=== PATIENT | female | born 1955 | race African-American/Black ===

== ENCOUNTER 2017-04-04 17:37 | Emergency (ER) | payer MEDICARE ==
[2017-04-04] MEDS ORDERED: ONDANSETRON 4 MG TAB.RAPDIS PO ONE (18:14)
[2017-04-04] MEDS ORDERED: NORMAL SALINE 1000 ML 1,000 ML IV ONE (18:16)
--- NOTE | 2017-04-04 18:18 | ER Document Report ---
ED Medical Screen (RME) - General Chief Complaint: Nausea/Vomiting Stated Complaint: NAUSEA,VOMITING Time Seen by Provider: 04/04/17 18:14 Mode of Arrival: Wheelchair Information source: Patient Notes: 51-year-old female presents with probable food poisoning Patient admits to vomiting has a history of diabetes single-vessel coronary artery disease I have greeted and performed a rapid initial assessment of this patient. A comprehensive ED assessment and evaluation of the patient, analysis of test results and completion of the medical decision making process will be conducted by additional ED providers. PHYSICAL EXAMINATION: GENERAL: Well-appearing, well-nourished and in no acute distress. HEAD: Atraumatic, normocephalic. EYES: Pupils equal round extraocular movements intact, conjunctiva are normal. ENT: Nares patent NECK: Normal range of motion LUNGS: No respiratory distress Musculoskeletal: Normal range of motion NEUROLOGICAL: Normal speech, normal gait. PSYCH: Normal mood, normal affect. SKIN: Warm, Dry, normal turgor, no rashes or lesions noted. TRAVEL OUTSIDE OF THE [place] IN LAST 30 DAYS: No - Related Data Allergies/Adverse Reactions: oxycodone Allergy (Verified 04/04/17 17:38) Past Medical History - Social History Chew tobacco use (# tins/day): No Frequency of alcohol use: None Drug Abuse: None - Past Medical History Cardiac Medical History: Reports: Hx Hypercholesterolemia, Hx Hypertension Endocrine Medical History: Reports: Hx Diabetes Mellitus Type 2 Renal/ Medical History: Denies: Hx Peritoneal Dialysis Past Surgical History: Reports: Hx Hysterectomy, Hx Open Heart Surgery - cabgx1 Physical Exam - Vital signs Vitals: Temp Pulse Resp BP Pulse Ox 98.3 F 93 16 108/59 L 95 04/04/17 17:44 04/04/17 17:44 04/04/17 17:44 04/04/17 17:44 04/04/17 17:44 Course - Vital Signs Vital signs: Temp Pulse Resp BP Pulse Ox 98.3 F 93 16 108/59 L 95 04/04/17 17:44 04/04/17 17:44 04/04/17 17:44 04/04/17 17:44 04/04/17 17:44
[2017-04-04 18:48] LABS: ABSOLUTE BASOPHILS # (AUTO) 0.1 10^3/uL (0.0-0.2); ABSOLUTE EOSINOPHILS # (AUTO) 0.2 10^3/uL (0.0-0.6); ABSOLUTE LYMPHOCYTES (AUTO) 3.4 10^3/uL (0.5-4.7); ABSOLUTE MONOCYTES (AUTO) 0.6 10^3/uL (0.1-1.4); ABSOLUTE NEUT (AUTO) 7.9 10^3/uL (1.7-8.2); EOSINOPHILS % (AUTO) 1.3 % (0-6); HEMATOCRIT 43.1 % (36.0-47.0); HEMOGLOBIN 14.2 g/dL (12.0-15.5); MEAN CORPUSCULAR HGB CONC 32.9 g/dL (32.0-36.0); MEAN CORPUSCULAR VOLUME 88 fl (80-97); MONOCYTES % (AUTO) 4.9 % (3-13); PLATELET COUNT 324 10^3/uL (150-450); RED BLOOD COUNT 4.88 10^6/uL (3.72-5.28); SEGMENTED NEUTROPHILS % (AUTO) 64.8 % (42-78); TOTAL CELLS COUNTED % (AUTO) 100 %; WHITE BLOOD COUNT 12.2 10^3/uL (4.0-10.5)
[2017-04-04] MEDS ORDERED: ONDANSETRON HCL INJ/PF 4 MG/2 ML SDV IV ONE (18:51)
[2017-04-04 19:04] LABS: ALANINE AMINOTRANSFERASE 35 U/L (9-52); ALBUMIN 4.3 g/dL (3.5-5.0); ALKALINE PHOSPHATASE 208 U/L (38-126); ANION GAP 11 (5-19); ASPARTATE AMINO TRANSFERASE 24 U/L (14-36); BILIRUBIN,DIRECT 0.2 mg/dL (0.0-0.4); BILIRUBIN,TOTAL 0.6 mg/dL (0.2-1.3); BLOOD UREA NITROGEN 18 mg/dL (7-20); CALCIUM 9.8 mg/dL (8.4-10.2); CARBON DIOXIDE 27 mmol/L (22-30); CHLORIDE 107 mmol/L (98-107); GLUCOSE 233 mg/dL (75-110); LIPASE 158.7 U/L (23-300); POTASSIUM 4.4 mmol/L (3.6-5.0); SODIUM 145.4 mmol/L (137-145); TOTAL PROTEIN 8.1 g/dL (6.3-8.2)
[2017-04-04] MEDS ORDERED: ONDANSETRON ODT 4 MG TAB (6 TAB/ER DISP) PO PRN (19:33)
--- NOTE | 2017-04-04 19:33 | ER Document Report ---
ED General - General Chief Complaint: Nausea/Vomiting Stated Complaint: NAUSEA,VOMITING Time Seen by Provider: 04/04/17 18:14 Mode of Arrival: Wheelchair Notes: Patient is a 61-year-old female with a past medical history of insulin- dependent diabetes, obesity and hypertension who presents with vomiting and diarrhea shortly after eating seafood with family. Patient states that symptoms started approximately 10 minutes after eating shrimp. She states that she had persistent vomiting and diarrhea which is now resolved without intervention. She states several family was complained of some cramping but nobody had vomiting and diarrhea like she did. She denies a history of similar symptoms in the past. Nothing improves or worsens her symptoms. She has not seen her primary doctor regarding today's concerns. She denies any localizing abdominal pain. TRAVEL OUTSIDE OF THE [place] IN LAST 30 DAYS: No - Related Data Allergies/Adverse Reactions: oxycodone Allergy (Verified 04/04/17 17:38) Past Medical History - General Information source: Patient - Social History Smoking Status: Former Smoker Chew tobacco use (# tins/day): No Frequency of alcohol use: None Drug Abuse: None Lives with: Family Family History: Reviewed & Not Pertinent Patient has suicidal ideation: No Patient has homicidal ideation: No - Past Medical History Cardiac Medical History: Reports: Hx Hypercholesterolemia, Hx Hypertension Endocrine Medical History: Reports: Hx Diabetes Mellitus Type 2 Renal/ Medical History: Denies: Hx Peritoneal Dialysis Past Surgical History: Reports: Hx Hysterectomy, Hx Open Heart Surgery - cabgx1 Review of Systems - Review of Systems Notes: Constitutional: Negative for fever. HENT: Negative for sore throat. Eyes: Negative for visual changes. Cardiovascular: Negative for chest pain. Respiratory: Negative for shortness of breath. Gastrointestinal: Negative for abdominal pain, positive for vomiting and diarrhea Genitourinary: Negative for dysuria. Musculoskeletal: Negative for back pain. Skin: Negative for rash. Neurological: Negative for headaches, weakness or numbness. 10 point ROS negative except as marked above and in HPI. Physical Exam - Vital signs Vitals: Temp Pulse Resp BP Pulse Ox 98.3 F 93 16 108/59 L 95 04/04/17 17:44 04/04/17 17:44 04/04/17 17:44 04/04/17 17:44 04/04/17 17:44 Interpretation: Normal Notes: PHYSICAL EXAMINATION: GENERAL: Well-appearing, well-nourished and in no acute distress. HEAD: Atraumatic, normocephalic. EYES: Pupils equal round and reactive to light, extraocular movements intact, sclera anicteric, conjunctiva are normal. ENT: nares patent, oropharynx clear without exudates. Moist mucous membranes. NECK: Normal range of motion, supple without lymphadenopathy LUNGS: Breath sounds clear to auscultation bilaterally and equal. No wheezes rales or rhonchi. HEART: Regular rate and rhythm without murmurs ABDOMEN: Soft, nontender, normoactive bowel sounds. No guarding, no rebound. No masses appreciated. EXTREMITIES: Normal range of motion, no pitting or edema. No cyanosis. NEUROLOGICAL: No focal neurological deficits. Moves all extremities spontaneously and on command. PSYCH: Normal mood, normal affect. SKIN: Warm, Dry, normal turgor, no rashes or lesions noted. Course - Re-evaluation Re-evalutation: 04/04/17 19:30 Presentation of an overall well-appearing patient in no acute distress with complaints of nausea, vomiting, diarrhea. Patient started with symptoms within 10 minutes of eating seafood. Several family members felt sick but did not develop vomiting. Patient has no abdominal tenderness on exam and specifically no tenderness in the RLQ, LLQ, RUQ. Overall well hydrated on exam. Able to tolerate oral intake here in the emergency department. Low clinical suspicion for any acute life-threatening etiology based on exam and history including acute cholecystitis, SBO, appendicitis, nephrolithiasis, or pylonephritis. CMP without evidence of acute hepatitis or significant dehydration. At this time will discharge with return precautions and follow-up recommendations. Verbal discharge instructions given a the bedside and opportunity for questions given. Medication warnings reviewed. Patient is in agreement with this plan and has verbalized understanding of return precautions and the need for primary care follow-up in the next 24-72 hours. - Vital Signs Vital signs: Temp Pulse Resp BP Pulse Ox 98.8 F 65 18 153/93 H 97 04/04/17 20:12 04/04/17 20:12 04/04/17 20:12 04/04/17 20:12 04/04/17 20:12 - Laboratory Result Diagrams: 04/04/17 18:28 04/04/17 18:28 Laboratory results interpreted by me: 04/04/17 04/04/17 18:28 18:28 WBC 12.2 H Sodium 145.4 H Glucose 233 H Alkaline Phosphatase 208 H Discharge - Discharge Clinical Impression: Nausea vomiting and diarrhea Condition: Good Disposition: HOME, SELF-CARE Additional Instructions: Your symptoms are likely due to food contamination and should resolve in the next several days. Continue to stay hydrated with plenty of solution such as Gatorade or Pedialyte. You are being prescribed Zofran to take as needed for nausea and vomiting. Please return if you develop severe abdominal pain, pass out, become unable to tolerate any oral fluids for 12 more hours, or any other symptoms that are concerning to you.
[2017-04-04 20:17] VITALS: BP 153/93
--- NOTE | 2017-04-05 11:55 | EKG REPORT ---
SEVERITY:- ABNORMAL ECG - SINUS RHYTHM LVH WITH SECONDARY REPOLARIZATION ABNORMALITY : Confirmed by: Bailey Liang MD 05-Apr-2017 11:55:19
== END 2017-04-04 20:18 | disposition home or self-care (01) ==
LOC: ER 17:37
DX: R11.2 Nausea with vomiting, unspecified (principal); R19.7 Diarrhea, unspecified; I10 Essential (primary) hypertension; E11.9 Type 2 diabetes mellitus without complications; Z79.4 Long term (current) use of insulin; Z87.891 Personal history of nicotine dependence; Z88.5 Allergy status to narcotic agent
CPT/HCPCS: 93005; 99283; 96361; 96374; 36415; 83690; 85025; 80053; 93010; A9270 ×2; J2405; J7030; S0119

== ENCOUNTER 2017-10-01 13:30 | Emergency (ER) | payer MEDICAID ==
--- NOTE | 2017-10-01 14:16 | ER Document Report ---
ED Medical Screen (RME) - General Chief Complaint: Rectal Pain Stated Complaint: RECTAL PAIN Time Seen by Provider: 10/01/17 14:10 Notes: 61 years old female with a history of hysterectomy, presents today having suprapubic pain and discomfort as well as dysuria and frequency, when she wipes noted bright red blood. Therefore present to the ED. No fever chills or other constitutional symptoms. No nausea vomiting TRAVEL OUTSIDE OF THE [place] IN LAST 30 DAYS: No - Related Data Allergies/Adverse Reactions: oxycodone Allergy (Verified 10/01/17 13:31) Past Medical History - Social History Chew tobacco use (# tins/day): No Frequency of alcohol use: None Drug Abuse: None - Past Medical History Cardiac Medical History: Reports: Hx Hypercholesterolemia, Hx Hypertension Endocrine Medical History: Reports: Hx Diabetes Mellitus Type 2 Renal/ Medical History: Denies: Hx Peritoneal Dialysis Past Surgical History: Reports: Hx Hysterectomy, Hx Open Heart Surgery - cabgx1 Physical Exam - Vital signs Vitals: Temp Pulse Resp BP Pulse Ox 98.5 F 87 18 165/110 H 99 10/01/17 13:34 10/01/17 13:34 10/01/17 13:34 10/01/17 13:34 10/01/17 13:34 Course - Vital Signs Vital signs: Temp Pulse Resp BP Pulse Ox 98.5 F 87 18 165/110 H 99 10/01/17 13:34 10/01/17 13:34 10/01/17 13:34 10/01/17 13:34 10/01/17 13:34
--- NOTE | 2017-10-01 15:28 | ER Document Report ---
ED GI/ - General Chief Complaint: Rectal Pain Stated Complaint: RECTAL PAIN Time Seen by Provider: 10/01/17 14:10 Information source: Patient Notes: Patient is a 61-year-old female that presents today with what she states is around 2 days of some dysuria. She denies any abdominal pain. She does state some mild intermittent right flank pain. She denies any blood in the urine or from the vaginal region. Patient states she did see a little blood when she wiped her buttocks yesterday. She states a history of hemorrhoids. She denies any pain with defecation. She denies any nausea, vomiting, or diarrhea. TRAVEL OUTSIDE OF THE [place] IN LAST 30 DAYS: No - HPI Patient complains to provider of: Other - See above Onset: Other - See above Timing/Duration: Gradual Quality of pain: Achy Severity at maximum: Mild Severity in ED: None Pain Level: Denies Location: Other - See above Vaginal bleeding (Compared to normal period): None Sexual history: Inactive Associated symptoms: Other - See above Exacerbated by: Denies Relieved by: Denies Similar symptoms previously: No Recently seen / treated by doctor: Yes - Related Data Allergies/Adverse Reactions: oxycodone Allergy (Verified 10/01/17 13:31) Past Medical History - General Information source: Patient - Social History Smoking Status: Former Smoker Cigarette use (# per day): No Chew tobacco use (# tins/day): No Smoking Education Provided: No Frequency of alcohol use: None Drug Abuse: None Family History: Reviewed & Not Pertinent Patient has suicidal ideation: No Patient has homicidal ideation: No - Past Medical History Cardiac Medical History: Reports: Hx Hypercholesterolemia, Hx Hypertension Endocrine Medical History: Reports: Hx Diabetes Mellitus Type 2 Renal/ Medical History: Denies: Hx Peritoneal Dialysis Past Surgical History: Reports: Hx Hysterectomy, Hx Open Heart Surgery - cabgx1 Review of Systems - Review of Systems Constitutional: denies: Fever Respiratory: denies: Short of breath Gastrointestinal: denies: Vomiting Genitourinary: Burning, Dysuria, Flank pain, Urgency. denies: Hematuria, Incontinence, Retention Musculoskeletal: denies: Leg swelling Skin: Other - no hives. denies: Rash Neurological/Psychological: Other - no slurred speech -: Yes All other systems reviewed and negative Physical Exam - Vital signs Vitals: Temp Pulse Resp BP Pulse Ox 98.5 F 87 18 165/110 H 99 10/01/17 13:34 10/01/17 13:34 10/01/17 13:34 10/01/17 13:34 10/01/17 13:34 Notes: Reviewed vital signs and nursing note as charted by RN. CONSTITUTIONAL: Alert and oriented and responds appropriately to questions. Well -appearing; well-nourished HEAD: Normocephalic; atraumatic EYES: Sclerae non-icteric CARD: Regular rate and rhythm; no murmurs RESP: Normal chest excursion without splinting or tachypnea; breath sounds clear and equal bilaterally ABD/GI: Normal bowel sounds; non-distended; soft, non-tender to deep palpation of all 4 quadrants of the abdomen GI/: Patient with fire control technician present was examined and I do not detect any obvious vaginal or perirectal lesions. Patient does have some nonthrombosed external hemorrhoids with no obvious bleeding. No pain with digital insertion. Hemoccult has been sent. No gross blood noted BACK: The back appears normal and is non-tender to palpation, there is no CVA tenderness EXT: Normal ROM in all joints; non-tender to palpation SKIN: No acute lesions noted NEURO: Moves all extremities equally; Motor and sensory function intact PSYCH: The patient's mood and manner are appropriate. Grooming and personal hygiene are appropriate. Course - Re-evaluation Re-evalutation: 10/01/17 15:27 Given the above history and physical examination, and the patient's age, I will obtain a urinalysis, hemoglobin level, chemistry, and renal colic protocol CT scan. I would like to evaluate for possible urinary tract infection and/or kidney stone or pyelonephritis. Patient's blood pressure as recorded. She is on blood pressure medications. She denies any headache, chest pain, or leg swelling. 10/01/17 16:30 Labs as recorded. I have added a liter of fluid and a gram of Rocephin. CT scan is pending. Exam is improved. 10/01/17 17:29 CT scan is recorded. Patient currently denies any pain. Hemoccult is negative. Patient takes metformin and insulin. She states she has been taking her medications appropriately. Urine culture has been sent and we will provide insulin as well as fluid. When her Accu-Chek is below 300, patient will be discharged home with strict return precautions and follow-up with the primary care physician. Patient is comfortable with this plan. - Vital Signs Vital signs: Temp Pulse Resp BP Pulse Ox 98.5 F 87 18 165/110 H 99 10/01/17 13:34 10/01/17 13:34 10/01/17 13:34 10/01/17 13:34 10/01/17 13:34 - Laboratory Result Diagrams: 10/01/17 15:46 10/01/17 15:46 Laboratory results interpreted by me: 10/01/17 10/01/17 10/01/17 15:10 15:46 15:46 WBC 13.9 H Absolute Neutrophils 10.0 H Glucose 407 H* Urine Glucose (UA) >=500 H Urine Blood SMALL H Ur Leukocyte Esterase MODERATE H Discharge - Discharge Clinical Impression: Hyperglycemia due to type 1 diabetes mellitus Urinary tract infection Qualifiers: Urinary tract infection type: site unspecified Hematuria presence: without hematuria Qualified Code(s): N39.0 - Urinary tract infection, site not specified Condition: Good Disposition: HOME, SELF-CARE Additional Instructions: Come back immediately with any return of pain, change in location or quality of pain, fevers or vomiting, or any other acute problems. Please make sure that she take the antibiotics as prescribed and please make sure that she follow-up with your primary care physician for reevaluation of the urine analysis and culture, blood pressure, and to recheck your sugars. Please also return if your sugars are persistently greater than 300. Prescriptions: Cephalexin Monohydrate [Keflex 500 mg Capsule] 500 mg PO Q6H 7 Days capsule
[2017-10-01 15:46] LABS: APPEARANCE,URINE SLIGHTLY-CLOUDY; BILIRUBIN,URINE NEGATIVE (NEGATIVE); COLOR,URINE STRAW; GLUCOSE, URINE >=500 mg/dL (NEGATIVE); KETONES,URINE NEGATIVE (NEGATIVE); LEUKOCYTE ESTERASE,URINE MODERATE (NEGATIVE); NITRITE,URINE NEGATIVE (NEGATIVE); PROTEIN,URINE NEGATIVE (NEGATIVE); URINE SPECIFIC GRAVITY 1.024; UROBILINOGEN,URINE NEGATIVE mg/dL (<2.0)
[2017-10-01 16:17] LABS: ABSOLUTE BASOPHILS # (AUTO) 0.1 10^3/uL (0.0-0.2); ABSOLUTE EOSINOPHILS # (AUTO) 0.1 10^3/uL (0.0-0.6); ABSOLUTE LYMPHOCYTES (AUTO) 3.1 10^3/uL (0.5-4.7); ABSOLUTE MONOCYTES (AUTO) 0.6 10^3/uL (0.1-1.4); BASOPHILS % (AUTO) 0.5 % (0-2); EOSINOPHILS % (AUTO) 0.8 % (0-6); HEMATOCRIT 41.8 % (36.0-47.0); LYMPHOCYTES % (AUTO) 22.7 % (13-45); MEAN CORPUSCULAR HEMOGLOBIN 29.6 pg (27.0-33.4); MEAN CORPUSCULAR HGB CONC 33.4 g/dL (32.0-36.0); MEAN CORPUSCULAR VOLUME 88 fl (80-97); MONOCYTES % (AUTO) 4.2 % (3-13); PLATELET COUNT 295 10^3/uL (150-450); RED BLOOD COUNT 4.73 10^6/uL (3.72-5.28); RED CELL DISTRIBUTION WIDTH 13.7 % (11.5-14.0); SEGMENTED NEUTROPHILS % (AUTO) 71.8 % (42-78); TOTAL CELLS COUNTED % (AUTO) 100 %; WHITE BLOOD COUNT 13.9 10^3/uL (4.0-10.5)
[2017-10-01 16:37] LABS: ANION GAP 13 (5-19); BLOOD UREA NITROGEN 18 mg/dL (7-20); CALCIUM 9.3 mg/dL (8.4-10.2); CARBON DIOXIDE 24 mmol/L (22-30); CHLORIDE 103 mmol/L (98-107); POTASSIUM 4.5 mmol/L (3.6-5.0); SODIUM 139.8 mmol/L (137-145)
[2017-10-01 16:46] LABS: GLUCOSE 407 mg/dL (75-110)
[2017-10-01] MEDS ORDERED: NORMAL SALINE 1000 ML 1,000 ML IV ONE ×2 (16:54→17:29)
[2017-10-01] MEDS ORDERED: CEFTRIAXONE 1 GM/D5W RTU 1 GM/50 ML RTUPB IV ONE (16:55)
--- NOTE | 2017-10-01 17:16 | RADIOLOGY REPORT (SQ) ---
EXAM DESCRIPTION: CT LTD RENAL STONE PROTOCOL ON COMPLETED DATE/TIME: 10/01/2017 5:04 pm REASON FOR STUDY: flank pain; right COMPARISON: None. TECHNIQUE: CT scan of the abdomen and pelvis performed without intravenous or oral contrast. Images reviewed with lung, soft tissue, and bone windows. Reconstructed coronal and sagittal MPR images revi ewed. All images stored on PACS. All CT scanners at this facility use dose modulation, iterative reconstruction, and/or weight based d osing when appropriate to reduce radiation dose to as low as reasonably achievable (ALARA). [facility]: Dose Right [facility]: CareDose [facility]: Dose Right [facility]: Teradose 4D [facility]: [employer] RADIATION DOSE: CT Rad equipment meets quality standard of care and radiation dose reduction techniq ues were employed. CTDIvol: 18.9 mGy. DLP: 980 mGy-cm.mGy. LIMITATIONS: None. FINDINGS: LOWER CHEST: No significant findings. No nodules or infiltrates. NON-CONTRASTED LIVER, SPLEEN, ADRENALS: Evaluation limited by lack of IV contrast. No identified sign ificant masses. PANCREAS: No masses. No peripancreatic inflammatory changes. GALLBLADDER: No identified stones by CT criteria. No inflammatory changes to suggest cholecystitis. RIGHT KIDNEY AND URETER: No suspicious masses. Assessment limited by lack of IV contrast. No signif icant calcifications. No hydronephrosis or hydroureter. LEFT KIDNEY AND URETER: No suspicious masses. Assessment limited by lack of IV contrast. No signifi cant calcifications. No hydronephrosis or hydroureter. AORTA AND RETROPERITONEUM: No aneurysm. No retroperitoneal masses or adenopathy. BOWEL AND PERITONEAL CAVITY: No obvious masses or inflammatory changes. No free fluid. APPENDIX: Normal. PELVIS, BLADDER, AND ABDOMINAL WALL:No abnormal masses. No free fluid. Bladder normal. BONES: No significant findings. OTHER: No other significant finding. IMPRESSION: NO SIGNIFICANT OR ACUTE PROCESS IN THE ABDOMEN OR PELVIS. COMMENT: Quality ID # [id number]: Final reports with documentation of one or more dose reduction techniques (e.g., Automated exposure control, adjustment of the mA and/or kV according to patient size, use of iterative reconstruction technique) TECHNICAL DOCUMENTATION: JOB ID: [id number] [employer]- All Rights Reserved Reading location - IP/workstation name: [email or web address]
[2017-10-01] MEDS ORDERED: INSULIN REG, HUMAN 100 UNIT/ML 3 ML VIAL (PYX) IV ONE (17:29)
[2017-10-01] MEDS ORDERED: CEFTRIAXONE INJ 1000 MG VIAL ONE (17:30)
[2017-10-01 19:11] VITALS: BP 189/95
== END 2017-10-01 19:13 | disposition home or self-care (01) ==
LOC: ER 13:30
DX: E10.65 Type 1 diabetes mellitus with hyperglycemia (principal); N39.0 Urinary tract infection, site not specified; K62.89 Other specified diseases of anus and rectum; R10.9 Unspecified abdominal pain; E78.00 Pure hypercholesterolemia, unspecified; I10 Essential (primary) hypertension; Z87.891 Personal history of nicotine dependence; Z88.6 Allergy status to analgesic agent; Z90.710 Acquired absence of both cervix and uterus; Z95.1 Presence of aortocoronary bypass graft
CPT/HCPCS: 99284; 96361; 96374; 36415; 82962; 85025; 82272; 80048; 81001; 76380; J1815; J0696; J7030

== ENCOUNTER 2017-11-11 10:18 | Emergency (ER) | payer MEDICAID ==
[2017-11-11 10:25] VITALS: BP 193/99
--- NOTE | 2017-11-11 10:46 | ER Document Report ---
ED Medical Screen (RME) - General Chief Complaint: Vaginal Itching Stated Complaint: VAGINAL ITCHING Time Seen by Provider: 11/11/17 10:45 TRAVEL OUTSIDE OF THE [place] IN LAST 30 DAYS: No - HPI Notes: 11/11/17 10:45 Vaginal itching 3 weeks - Related Data Allergies/Adverse Reactions: oxycodone Allergy (Verified 11/11/17 10:20) Past Medical History - Social History Frequency of alcohol use: None Drug Abuse: None - Past Medical History Cardiac Medical History: Reports: Hx Hypercholesterolemia, Hx Hypertension Endocrine Medical History: Reports: Hx Diabetes Mellitus Type 2 Renal/ Medical History: Denies: Hx Peritoneal Dialysis Past Surgical History: Reports: Hx Hysterectomy, Hx Open Heart Surgery - cabgx1 Review of Systems - Review of Systems Constitutional: Other - Vaginal itching Physical Exam - Vital signs Vitals: Temp Pulse Resp BP Pulse Ox 98.3 F 91 16 193/99 H 100 11/11/17 10:24 11/11/17 10:24 11/11/17 10:24 11/11/17 10:24 11/11/17 10:24 - Respiratory Respiratory status: No respiratory distress Chest status: Nontender Breath sounds: Normal Chest palpation: Normal Course - Vital Signs Vital signs: Temp Pulse Resp BP Pulse Ox 98.3 F 91 16 193/99 H 100 11/11/17 10:24 11/11/17 10:24 11/11/17 10:24 11/11/17 10:24 11/11/17 10:24 Doctor's Discharge - Discharge Referrals: CONTRERAS LYNCH MD [Primary Care Provider] - Follow up as needed
--- NOTE | 2017-11-11 11:55 | ER Document Report ---
ED General - General Chief Complaint: Vaginal Itching Stated Complaint: VAGINAL ITCHING Time Seen by Provider: 11/11/17 10:45 Notes: 62-year-old female presents with a month history of some vaginal itching and clear discharge. Patient has history of hysterectomy she has not had sex in several years. She attributes it that she may have used too much cleaning medicine and so. He denies any abdominal pain. Denies rectal bleeding. Denies vaginal bleeding. Denies chest pains or shortness of breath describes as a vague mild itch nothing really makes it better or worse she has not tried anything [id number] TRAVEL OUTSIDE OF THE [place] IN LAST 30 DAYS: No - Related Data Allergies/Adverse Reactions: oxycodone Allergy (Verified 11/11/17 10:20) Past Medical History - Social History Smoking Status: Never Smoker Frequency of alcohol use: None Drug Abuse: None Family History: Reviewed & Not Pertinent Patient has suicidal ideation: No Patient has homicidal ideation: No - Past Medical History Cardiac Medical History: Reports: Hx Hypercholesterolemia, Hx Hypertension Endocrine Medical History: Reports: Hx Diabetes Mellitus Type 2 Renal/ Medical History: Denies: Hx Peritoneal Dialysis Past Surgical History: Reports: Hx Hysterectomy, Hx Open Heart Surgery - cabgx1 Review of Systems - Review of Systems Constitutional: denies: Chills, Fever Cardiovascular: denies: Chest pain, Dyspnea Respiratory: denies: Short of breath Gastrointestinal: denies: Abdominal pain Genitourinary: Dysuria. denies: Hematuria Female Genitourinary: Post menopausal, Vaginal discharge, Vaginal odor. denies : , Heavy/abnormal periods, Irregular period, Vaginal bleeding, Painful intercourse Neurological/Psychological: denies: Anxiety -: Yes All other systems reviewed and negative Physical Exam - Vital signs Vitals: Temp Pulse Resp BP Pulse Ox 98.3 F 91 16 193/99 H 100 11/11/17 10:24 11/11/17 10:24 11/11/17 10:24 11/11/17 10:24 11/11/17 10:24 - Notes Notes: GENERAL_APPEARANCE: well_nourished, alert, cooperative, no_acute_distress, no_ obvious_discomfort. VITALS: reviewed, see vital signs table. HEAD: no_swelling\tenderness on the head. EYES: conjunctiva_clear. NOSE: no_nasal_discharge. MOUTH: (-)decreased moisture. NECK: supple, no_neck_tenderness, (-)thyromegaly. BACK: no_back_tenderness. ABDOMEN: soft, no_abd_tenderness, (-)guarding, (-)rebound, no_organomegaly, no _abd_masses. PELVIC: Thic white d/c with generalized vaginitius EXTREMITIES:no_swelling\tenderness in the extremities, no_edema. SKIN: warm, dry, good_color, no_rash. MENTAL_STATUS: speech_clear, oriented_X_3, normal_affect, responds_ appropriately to questions. Course - Re-evaluation Re-evalutation: 11/11/17 11:56 Patient arrives with vaginal itching. Pelvic was done which shows some thick discharge and vaginitis will check a wet prep. Check urinalysis 11/11/17 12:48 Patient does have a UTI on the lab work few white cells in the wet prep possibly some mild BV. Treat with Macrobid and Flagyl. - Vital Signs Vital signs: Temp Pulse Resp BP Pulse Ox 98.3 F 91 16 193/99 H 100 11/11/17 10:24 11/11/17 10:24 11/11/17 10:24 11/11/17 10:24 11/11/17 10:24 - Laboratory Laboratory results interpreted by me: 11/11/17 11:49 Urine Glucose (UA) >=500 H Ur Leukocyte Esterase LARGE H Urine Ascorbic Acid 40 H Discharge - Discharge Clinical Impression: Vaginitis UTI (urinary tract infection) Qualifiers: Urinary tract infection type: acute cystitis Hematuria presence: without hematuria Qualified Code(s): N30.00 - Acute cystitis without hematuria Condition: Good Disposition: HOME, SELF-CARE Instructions: Urinary Tract Infection ([facility]), Vaginitis ([facility]) Prescriptions: Metronidazole [Flagyl 500 mg Tablet] 500 mg PO Q6H #28 tablet Metronidazole [Flagyl 500 mg Tablet] 500 mg PO TID #30 tablet Nitrofurantoin/Nitrofuran Mac [Macrobid 100 mg Capsule] 1 tab PO BID #20 capsule Referrals: CONTRERAS LYNCH MD [ACTIVE STAFF] - Follow up as needed
[2017-11-11 12:01] LABS: BACTERIA (WET MOUNT) 4+ BACTERIA SEEN; T.VAGINALIS (WET MOUNT) NO TRICHOMONAS SEEN; WBCS (WET MOUNT) FEW WBCS SEEN; YEAST (WET MOUNT) NO YEAST SEEN
[2017-11-11 12:18] LABS: APPEARANCE,URINE CLOUDY; BILIRUBIN,URINE NEGATIVE (NEGATIVE); COLOR,URINE YELLOW; GLUCOSE, URINE >=500 mg/dL (NEGATIVE); KETONES,URINE NEGATIVE (NEGATIVE); LEUKOCYTE ESTERASE,URINE LARGE (NEGATIVE); NITRITE,URINE NEGATIVE (NEGATIVE); PROTEIN,URINE NEGATIVE (NEGATIVE); URINE SPECIFIC GRAVITY 1.031; UROBILINOGEN,URINE NEGATIVE mg/dL (<2.0)
== END 2017-11-11 13:20 | disposition home or self-care (01) ==
LOC: ER 10:18
DX: N76.0 Acute vaginitis (principal); N30.00 Acute cystitis without hematuria; Z90.49 Acquired absence of other specified parts of digestive tract; Z88.5 Allergy status to narcotic agent; I10 Essential (primary) hypertension; E11.9 Type 2 diabetes mellitus without complications
CPT/HCPCS: 81001; 87210; 99283

== ENCOUNTER 2017-11-27 00:19 | Emergency (ER) | payer MEDICAID ==
[2017-11-27] MEDS ORDERED: ASPIRIN 81 MG TABLET, CHEWABLE PO ONE (00:58)
--- NOTE | 2017-11-27 01:06 | ER Document Report ---
ED Medical Screen (RME) - General Chief Complaint: Chest Pressure Stated Complaint: RAPID HEART RATE Time Seen by Provider: 11/27/17 00:58 Notes: 62-year-old female who complains of waking tonight with chest pain that was sharp in the center of her chest, this has improved and almost resolved. Reports shortness of breath from the pain. Denies nausea or vomiting. Past medical history of CAD, stents, hypertension, type 2 diabetes. Denies any other complaints. TRAVEL OUTSIDE OF THE [place] IN LAST 30 DAYS: No - Related Data Allergies/Adverse Reactions: oxycodone Allergy (Verified 11/11/17 10:20) Past Medical History - Past Medical History Cardiac Medical History: Reports: Hx Hypercholesterolemia, Hx Hypertension Endocrine Medical History: Reports: Hx Diabetes Mellitus Type 2 Renal/ Medical History: Denies: Hx Peritoneal Dialysis Past Surgical History: Reports: Hx Hysterectomy, Hx Open Heart Surgery - cabgx1 Physical Exam - Respiratory Respiratory status: No respiratory distress Breath sounds: Normal. No: Decreased air movement, Wheezing - Cardiovascular Rhythm: Regular. No: Tachycardia Heart sounds: Normal auscultation, S1 appreciated, S2 appreciated Doctor's Discharge - Discharge Referrals: LORAINE SÁNCHEZ MD [Primary Care Provider] - Follow up as needed
[2017-11-27 02:12] LABS: ABSOLUTE BASOPHILS # (AUTO) 0.2 10^3/uL (0.0-0.2); ABSOLUTE EOSINOPHILS # (AUTO) 0.2 10^3/uL (0.0-0.6); ABSOLUTE LYMPHOCYTES (AUTO) 4.2 10^3/uL (0.5-4.7); ABSOLUTE NEUT (AUTO) 7.6 10^3/uL (1.7-8.2); BASOPHILS % (AUTO) 1.3 % (0-2); EOSINOPHILS % (AUTO) 1.2 % (0-6); HEMATOCRIT 40.1 % (36.0-47.0); HEMOGLOBIN 13.4 g/dL (12.0-15.5); LYMPHOCYTES % (AUTO) 32.2 % (13-45); MEAN CORPUSCULAR HEMOGLOBIN 29.9 pg (27.0-33.4); MEAN CORPUSCULAR HGB CONC 33.4 g/dL (32.0-36.0); MEAN CORPUSCULAR VOLUME 90 fl (80-97); MONOCYTES % (AUTO) 7.3 % (3-13); PLATELET COUNT 268 10^3/uL (150-450); RED BLOOD COUNT 4.47 10^6/uL (3.72-5.28); RED CELL DISTRIBUTION WIDTH 14.1 % (11.5-14.0); TOTAL CELLS COUNTED % (AUTO) 100 %; WHITE BLOOD COUNT 13.1 10^3/uL (4.0-10.5)
[2017-11-27 02:28] LABS: ALANINE AMINOTRANSFERASE 41 U/L (9-52); ALBUMIN 3.3 g/dL (3.5-5.0); ALKALINE PHOSPHATASE 175 U/L (38-126); ANION GAP 10 (5-19); ASPARTATE AMINO TRANSFERASE 17 U/L (14-36); BILIRUBIN,DIRECT 0.3 mg/dL (0.0-0.4); BILIRUBIN,TOTAL 0.5 mg/dL (0.2-1.3); BLOOD UREA NITROGEN 16 mg/dL (7-20); CALCIUM 9.2 mg/dL (8.4-10.2); CARBON DIOXIDE 25 mmol/L (22-30); CHLORIDE 104 mmol/L (98-107); CREATINE KINASE 56 U/L (30-135); GLUCOSE 306 mg/dL (75-110); POTASSIUM 4.3 mmol/L (3.6-5.0)
[2017-11-27 02:40] LABS: CREATINE KINASE MB 0.73 ng/mL (<4.55)
[2017-11-27 02:41] LABS: TROPONIN I < 0.012 ng/mL
--- NOTE | 2017-11-27 02:48 | RADIOLOGY REPORT (SQ) ---
EXAM DESCRIPTION: X-ray single view chest CLINICAL HISTORY: 62 years Female, chest pain COMPARISON: None. TECHNIQUE: Single portable view of the chest performed on 11/27/2017 at 2:07 AM FINDINGS: The lungs are well expanded and are clear. There is no evidence of a pneumothorax. The cardiac silhouette is normal in size and configuration. There are postsurgical changes of the mediastinum. The mediastinal contours are normal. No acute osseous abnormality is identified. No focal soft tissue abnormalities are seen. IMPRESSION: No evidence of acute intrathoracic disease. There are remote postsurgical changes of the mediastinum.
--- NOTE | 2017-11-27 03:24 | ER Document Report ---
ED Cardiac - General TRAVEL OUTSIDE OF THE [place] IN LAST 30 DAYS: No <BRIELLE ABEBE - Last Filed: 11/27/17 06:58> <DUSTY GOODEN - Last Filed: 11/27/17 09:48> - General Chief Complaint: Chest Pressure Stated Complaint: chest pains Time Seen by Provider: 11/27/17 00:58 Notes: Patient is a 62-year-old female presenting to the emergency department stating she woke up this evening with chest pain. Patient states the chest pain was in the middle of her chest dull in nature and does not radiate. Patient denies being short of breath or getting diaphoretic during the event. Patient took no home medications for chest pain, came to the emergency room. Patient denies nausea, vomiting, fever, URI symptoms, abdominal pain, dysuria. States she is taking her medications as prescribed. Admits to stress test 4 months ago, PCP Dr. Hamilton, correspondence renew clerk Dr. Hoffman. Past medical history: Insulin-dependent diabetes, hypertension, hyperlipidemia, angina, stents, CABG Medications: Metformin, Lantus, nitroglycerin, patient states she takes medication for her blood pressure but is unaware of the name Allergies: Percocet Surgical history: Hysterectomy, CABG Patient denies smoking, EtOH use, illicit drug use (BRIELLE ABEBE) - Related Data Allergies/Adverse Reactions: oxycodone Allergy (Verified 11/11/17 10:20) Past Medical History - General Information source: Patient - Social History Smoking Status: Never Smoker Lives with: Family Family History: Reviewed & Not Pertinent Patient has suicidal ideation: No Patient has homicidal ideation: No - Past Medical History Cardiac Medical History: Reports: Hx Hypercholesterolemia, Hx Hypertension Endocrine Medical History: Reports: Hx Diabetes Mellitus Type 2 Renal/ Medical History: Denies: Hx Peritoneal Dialysis Past Surgical History: Reports: Hx Hysterectomy, Hx Open Heart Surgery - cabgx1 <BRIELLE ABEBE - Last Filed: 11/27/17 06:58> Review of Systems - Review of Systems Constitutional: See HPI EENT: No symptoms reported Cardiovascular: See HPI Respiratory: See HPI Gastrointestinal: See HPI Genitourinary: See HPI Female Genitourinary: No symptoms reported Musculoskeletal: No symptoms reported Skin: No symptoms reported Hematologic/Lymphatic: No symptoms reported Neurological/Psychological: No symptoms reported <BRIELLE ABEBE - Last Filed: 11/27/17 06:58> Physical Exam <BRIELLE ABEBE - Last Filed: 11/27/17 06:58> <DUSTY GOODEN - Last Filed: 11/27/17 09:48> - Vital signs Vitals: Resp BP Pulse Ox 26 H 202/96 H 98 11/27/17 01:35 11/27/17 01:35 11/27/17 01:35 - Notes Notes: GENERAL: Obese, Alert, interacts well. No acute distress. HEAD: Normocephalic, atraumatic. EYES: Pupils equal, round, and reactive to light. Extraocular movements intact. ENT: Oral mucosa moist, tongue midline. NECK: Full range of motion. Supple. Trachea midline. LUNGS: Clear to auscultation bilaterally, no wheezes, rales, or rhonchi. No respiratory distress. HEART: Regular rate and rhythm. No murmur ABDOMEN: Soft, non-tender. Non-distended. Bowel sounds present in all 4 quadrants. EXTREMITIES: Moves all 4 extremities spontaneously. No edema, normal radial and dorsalis pedis pulses bilaterally. No cyanosis. BACK: no cervical, thoracic, lumbar midline tenderness. No saddle anesthesia, normal distal neurovascular exam. NEUROLOGICAL: Alert and oriented x3. Normal speech. . PSYCH: Normal affect, normal mood. SKIN: Warm, dry, normal turgor. No rashes or lesions noted. (DION ABEBEAMAEDIE) Course - Laboratory Result Diagrams: 11/27/17 02:02 11/27/17 02:02 <[email or web address] - Last Filed: 11/27/17 06:58> - Laboratory Result Diagrams: 11/27/17 02:02 11/27/17 02:02 <DUSTY GOODEN - Last Filed: 11/27/17 09:48> - Re-evaluation Re-evalutation: Upon initial HPI patient states she is no longer having chest pain. NIBP of forearm reading 205/105, asked staff analyst to get a manual. Heart Score 5. RN got manual of 202/[address] Acharya for admit. Labetolol ordered. Talked to Dr. Acharya about Pt. and she wants a repeat trop and if trending she will admit. Due to stress test in the last 4 months she does not want to admit until repeat Trop. RN notified me that Labatolol was not available in the ED. She stated she talked to RN car installations supervisor as well. Pt. now stated that her CP has returned. It is dull in nature and in the center of her chest. Denies radiation or SOB. EKG and Nitro ordered. BP medication held d/t Nitro being ordered. RN then came to me stating that the Pt. no longer has CP. When I went into the pt. to talk to her she stated that her CP had gone away at that point. Dr. Blue requested Nitro Paste at that time and to call Dr. Hoffman for further work-up and suggestions. Dr. Hoffman contacted who suggested CTA chest/abd/pelvis and Vasotec 2.5 mg IVP for BP managment. 11/27/17 06:58 (BRIELLE ABEBE) 11/27/17 09:39 This is Jin per his physician assistant women's soccer coach I have taken over care of patient from the film processing shift supervisor APC. She is given me an extensive report to entail the fact that she is talked to patient's correspondence renew clerk Dr. Hoffman and he requested to have a CTA of the chest abdomen and pelvis done. He also requested Vasotec be given. I believe this was 2.5 mg IV. During my handoff was informed patient had not received a Vasotec yet actually it was sometime later that she did receive it so we are monitoring her blood pressure as precaution. Reviewed patient's CTA of her chest abdomen and pelvis there was no acute findings as per the radiologist read. They did find some pulmonary nodules that may further need to be worked up down the line. This is definitely causing patient any chest discomfort. On physical exam patient is resting comfortably and has no chest pain and bilateral breath sounds are present without any rhonchi rales or wheezes noted. The Vasotec seems to be working well for patient last monitored blood pressure showed 148/78 and a heart rate of 88. Patient also satting 97%. I have relayed this message to Dr. Hoffman and he feels comfortable enough to allow patient to go home. He has requested that I have her contact his office first thing Thursday morning and to see him on Thursday. Patient has agreed to this is conditions and she is willing to be part the hospital feeling better than she did when she came in. And on discharge patient has no chest pain no shortness of breath no nausea or vomiting. Blood pressure is stable currently at 148/78 (DUSTY GOODEN) - Vital Signs Vital signs: Temp Pulse Resp BP Pulse Ox 17 148/87 H 96 11/27/17 09:16 11/27/17 09:16 11/27/17 09:16 - Laboratory Laboratory results interpreted by me: 11/27/17 11/27/17 02:02 02:02 WBC 13.1 H RDW 14.1 H Glucose 306 H Alkaline Phosphatase 175 H Albumin 3.3 L Discharge <BRIELLE ABEBE - Last Filed: 11/27/17 06:58> <DUSTY GOODEN - Last Filed: 11/27/17 09:48> - Discharge Clinical Impression: Atypical chest pain Hypertension Qualifiers: Hypertension type: unspecified Qualified Code(s): I10 - Essential (primary) hypertension Condition: Stable Disposition: HOME, SELF-CARE Instructions: Chest Pain of Unclear Cause ([facility]), Angina Episode ([facility]) Additional Instructions: Home and rest. This weekend do not overstress herself. Taking medications as prescribed. Monitor your blood pressure and keep a log if possible. I written you for some more nitroglycerin tablets use them as directed. Contact Dr. Segura office first thing Thursday morning to see him on Thursday. Should you have any concerns or problems or should the pain return and is not treated with the nitroglycerin a return to ER for recheck. If any time you have any concerns that he do not feel normal return to ER for recheck. Prescriptions: Nitroglycerin [Nitrostat 0.4 mg (1/150 Gr) Tabs 25/Bottle] 1 tab SL Q5MP PRN # 25 tab.subl PRN Reason: Referrals: LORAINE SÁNCHEZ MD [Primary Care Provider] - Follow up as needed JAJA SEGURA MD [ACTIVE STAFF] - Follow up as needed
[2017-11-27] MEDS ORDERED: LABETALOL HCL INJ 20 MG/4 ML DISP.SYRIN IV ONE ×2 (03:28→03:46)
[2017-11-27] MEDS ORDERED: NITROGLYCERIN 0.4 MG/TAB 25 TAB/BOTTLE SL PRN (05:44)
[2017-11-27] MEDS ORDERED: NITROGLYCERIN 2% OINTMENT 1 GM PACKET TP ONE (06:05)
[2017-11-27] MEDS ORDERED: ENALAPRILAT DIHYDRATE INJ/PF 2.5 MG/2 ML SDV IV ONE (06:35)
--- NOTE | 2017-11-27 08:28 | RADIOLOGY REPORT (SQ) ---
EXAM DESCRIPTION: CTA CHEST COMPLETED DATE/TIME: 11/27/2017 7:25 am REASON FOR STUDY: chest pain, HTN COMPARISON: None. TECHNIQUE: CT scan of the chest performed using helical scanning technique with dynamic intravenous contrast injection. Images reviewed with lung, soft tissue and bone windows. Reconstructed coronal and sagittal MPR images reviewed. Additional 3 dimensional post-processing performed to develop Maximal Intensity Projection images (TX P). All images stored on PACS. All CT scanners at this facility use dose modulation, iterative reconstruction, and/or weight based d osing when appropriate to reduce radiation dose to as low as reasonably achievable (ALARA). [facility]: Dose Right [facility]: CareDose [facility]: Dose Right [facility]: Teradose 4D [facility]: Red Stamp CONTRAST TYPE AND DOSE: contrast/concentration: Isovue 350.00 mg/ml; Total Contrast Delivered: 80.0 ml; Total Saline Delivered: 61.0 ml Contrast bolus adequate for pulmonary arteries and aorta. RENAL FUNCTION: Creatinine 0.6. RADIATION DOSE: . LIMITATIONS: None. FINDINGS: LUNGS AND PLEURA: Several small subcentimeter nodules, some of which are located in the pu lmonary fissures. The largest nodule measures 5.6 mm. No focal infiltrates. No pleural effusion or pneumothorax. AORTA AND GREAT VESSELS: No aneurysm. Contrast bolus not optimized for the aorta. HEART: No pericardial effusion. No significant coronary artery calcifications. PULMONARY ARTERIES: No emboli visualized in the main pulmonary arteries or the segmental branches. HILAR AND MEDIASTINAL STRUCTURES: No identified masses or abnormal nodes. HARDWARE: None in the chest. UPPER ABDOMEN: See separate report of the CT of the abdomen. THYROID AND OTHER SOFT TISSUES: No masses. No adenopathy. BONES: No acute or significant finding. 3D MIPS: Confirm above findings. OTHER: No other significant finding. IMPRESSION: 1. NORMAL CTA OF THE CHEST. NO THORACIC AORTIC ANEURYSM OR DISSECTION. NO PULMONARY EMBOLI. 2. SEVERAL SMALL PULMONARY NODULES, THE LARGEST MEASURING 5.6 MM. MAY CONSIDER FOLLOW-UP BASED ON [place] EISCHNER CRITERIA. COMMENT: FLEISCHNER CRITERIA FOR FOLLOW-UP OF PULMONARY NODULES Incidentally detected new nodules in persons 35 or older. HIGH RISK: History of smoking or other known risk factors. <6mm multiple solid nodules: LOW RISK: no routine followup. HIGH RISK: optional CT 12 mo. Quality ID # 436: Final reports with documentation of one or more dose reduction techniques (e.g., Au tomated exposure control, adjustment of the mA and/or kV according to patient size, use of iterative reconstruction technique) TECHNICAL DOCUMENTATION: JOB ID: [id number] [employer] All Rights Reserved Reading location - IP/workstation name: [email or web address]
--- NOTE | 2017-11-27 08:32 | RADIOLOGY REPORT (SQ) ---
EXAM DESCRIPTION: CTA ABDOMEN/PELVIS W WO COMPLETED DATE/TIME: 11/27/2017 7:25 am REASON FOR STUDY: chest pain, HTN COMPARISON: 10/01/2017. TECHNIQUE: CT scan of the abdomen and pelvis performed with intravenous contrast using helical scann ing technique with dynamic intravenous contrast injection. Images reviewed with lung, soft tissue, an d bone windows. Reconstructed coronal and sagittal MPR images reviewed. All images stored on PACS. Advanced 3D imaging as volume rendering, MIPS, SSD performed? yes All CT scanners at this facility use dose modulation, iterative reconstruction, and/or weight based d osing when appropriate to reduce radiation dose to as low as reasonably achievable (ALARA). [facility]: Dose Right [facility]: CareDose [facility]: Dose Right [facility]: Teradose 4D [facility]: [employer] CONTRAST TYPE AND DOSE: 80 mL Omnipaque 350- low osmolar. RENAL FUNCTION: Creatinine 0.6. LIMITATIONS: None. FINDINGS: AORTA AND VESSELS: No aneurysm. No dissection. Renal arteries, SMA, celiac without stenosi s. LUNG BASES: No significant findings. No nodules or infiltrates. LIVER: Normal size. No masses or dilated ducts. SPLEEN: Normal size. No focal lesions. PANCREAS: No masses. No significant calcifications. No adjacent inflammation or peripancreatic fluid collections. Pancreatic duct not dilated. GALLBLADDER: No identified stones by CT criteria. No inflammatory changes to suggest cholecystitis. ADRENAL GLANDS: No significant masses or asymmetry. RIGHT KIDNEY AND URETER: No mass, calculi or urinary tract obstruction. LEFT KIDNEY AND URETER: Stable cortical cyst. No mass, calculi or urinary tract obstruction. RETROPERITONEUM: No retroperitoneal adenopathy, hemorrhage or masses. BOWEL AND PERITONEAL CAVITY: No masses or inflammatory changes. No free fluid or peritoneal masses. APPENDIX: Normal. ABDOMINAL WALL: No masses. No hernias. BONY STRUCTURES: No significant or acute findings. 3-D IMAGING: Confirms the above findings. OTHER: No other significant finding. IMPRESSION: NO ABDOMINAL AORTIC ANEURYSM, DISSECTION OR SIGNIFICANT STENOSIS. NO SIGNIFICANT FINDING S IN THE ABDOMEN OR PELVIS. INCIDENTAL CORTICAL CYST IN THE LEFT KIDNEY. TECHNICAL DOCUMENTATION: JOB ID: [id number] Quality ID # [id number]: Final reports with documentation of one or more dose reduction techniques (e.g., Au tomated exposure control, adjustment of the mA and/or kV according to patient size, use of iterative reconstruction technique) 2010 [employer]- All Rights Reserved Reading location - IP/workstation name: [email or web address]
[2017-11-27 10:07] VITALS: BP 169/92
--- NOTE | 2017-11-27 10:25 | EKG REPORT ---
SEVERITY:- ABNORMAL ECG - SINUS RHYTHM LVH WITH SECONDARY REPOLARIZATION ABNORMALITY : Confirmed by: Bailey Liang MD 27-Nov-2017 10:24:46
--- NOTE | 2017-11-27 10:25 | EKG REPORT ---
SEVERITY:- ABNORMAL ECG - SINUS RHYTHM LVH WITH SECONDARY REPOLARIZATION ABNORMALITY : Confirmed by: Bailey Liang MD 27-Nov-2017 10:24:41
== END 2017-11-27 10:09 | disposition home or self-care (01) ==
LOC: ER 00:19
DX: R07.89 Other chest pain (principal); I10 Essential (primary) hypertension; E11.9 Type 2 diabetes mellitus without complications; E78.00 Pure hypercholesterolemia, unspecified; Z79.4 Long term (current) use of insulin; Z95.1 Presence of aortocoronary bypass graft; Z90.710 Acquired absence of both cervix and uterus
CPT/HCPCS: 93005; 99285; 96374; 36415; 82553; 82550; 85025; 80053; 84484; 71045; 71275; 74174; 93010; J3490 ×2

== ENCOUNTER 2018-05-28 11:47 | Emergency (ER) | payer MEDICAID ==
--- NOTE | 2018-05-28 12:53 | ER Document Report ---
ED Medical Screen (RME) - General Chief Complaint: Chest Pain Stated Complaint: CHEST PAIN, BODY PAIN Time Seen by Provider: 05/28/18 12:48 Primary Care Provider: LORAINE SÁNCHEZ MD [Primary Care Provider] - Follow up as needed Notes: 62-year-old female patient complaining of inferior substernal chest pain started yesterday. States she has been doing a lot of coughing for the past week and it got worse last weekend. I have greeted and performed a rapid initial assessment of this patient. A comprehensive ED assessment and evaluation of the patient, analysis of test results and completion of the medical decision making process will be conducted by additional ED providers. TRAVEL OUTSIDE OF THE [place] IN LAST 30 DAYS: No - Related Data Allergies/Adverse Reactions: oxycodone Allergy (Verified 05/28/18 11:51) Past Medical History - Social History Chew tobacco use (# tins/day): No Frequency of alcohol use: None Drug Abuse: None - Past Medical History Cardiac Medical History: Reports: Hx Hypercholesterolemia, Hx Hypertension Endocrine Medical History: Reports: Hx Diabetes Mellitus Type 2 Renal/ Medical History: Denies: Hx Peritoneal Dialysis Past Surgical History: Reports: Hx Hysterectomy, Hx Open Heart Surgery - cabgx1 Physical Exam - Vital signs Vitals: Temp Pulse Resp BP Pulse Ox 98.5 F 95 16 195/103 H 96 05/28/18 12:03 05/28/18 12:03 05/28/18 12:03 05/28/18 12:03 05/28/18 12:03 Course - Vital Signs Vital signs: Temp Pulse Resp BP Pulse Ox 98.5 F 95 16 195/103 H 96 05/28/18 12:03 05/28/18 12:03 05/28/18 12:03 05/28/18 12:03 05/28/18 12:03 Doctor's Discharge - Discharge Referrals: LORAINE SÁNCHEZ MD [Primary Care Provider] - Follow up as needed
[2018-05-28 13:23] LABS: ABSOLUTE BASOPHILS # (AUTO) 0.1 10^3/uL (0.0-0.2); ABSOLUTE EOSINOPHILS # (AUTO) 0.1 10^3/uL (0.0-0.6); ABSOLUTE LYMPHOCYTES (AUTO) 3.1 10^3/uL (0.5-4.7); ABSOLUTE MONOCYTES (AUTO) 0.6 10^3/uL (0.1-1.4); ABSOLUTE NEUT (AUTO) 7.8 10^3/uL (1.7-8.2); BASOPHILS % (AUTO) 1.1 % (0-2); EOSINOPHILS % (AUTO) 0.8 % (0-6); HEMATOCRIT 42.4 % (36.0-47.0); HEMOGLOBIN 14.1 g/dL (12.0-15.5); LYMPHOCYTES % (AUTO) 26.4 % (13-45); MEAN CORPUSCULAR HEMOGLOBIN 29.9 pg (27.0-33.4); MEAN CORPUSCULAR HGB CONC 33.1 g/dL (32.0-36.0); MEAN CORPUSCULAR VOLUME 90 fl (80-97); MONOCYTES % (AUTO) 4.8 % (3-13); PLATELET COUNT 282 10^3/uL (150-450); RED BLOOD COUNT 4.71 10^6/uL (3.72-5.28); RED CELL DISTRIBUTION WIDTH 13.7 % (11.5-14.0); SEGMENTED NEUTROPHILS % (AUTO) 66.9 % (42-78); TOTAL CELLS COUNTED % (AUTO) 100 %; WHITE BLOOD COUNT 11.7 10^3/uL (4.0-10.5)
[2018-05-28 13:24] LABS: APPEARANCE,URINE CLEAR; BILIRUBIN,URINE NEGATIVE (NEGATIVE); COLOR,URINE YELLOW; GLUCOSE, URINE >=500 mg/dL (NEGATIVE); KETONES,URINE NEGATIVE (NEGATIVE); LEUKOCYTE ESTERASE,URINE NEGATIVE (NEGATIVE); NITRITE,URINE NEGATIVE (NEGATIVE); PROTEIN,URINE NEGATIVE (NEGATIVE); URINE SPECIFIC GRAVITY 1.028
--- NOTE | 2018-05-28 13:31 | RADIOLOGY REPORT (SQ) ---
EXAM DESCRIPTION: CHEST 2 VIEWS COMPLETED DATE/TIME: 05/28/2018 1:23 pm REASON FOR STUDY: Chest pain, cough COMPARISON: 11/27/2017 EXAM PARAMETERS: NUMBER OF VIEWS: two views TECHNIQUE: Digital Frontal and Lateral radiographic views of the chest acquired. RADIATION DOSE: NA LIMITATIONS: none FINDINGS: LUNGS AND PLEURA: No opacities, masses or pneumothorax. No pleural effusion. MEDIASTINUM AND HILAR STRUCTURES: No masses or contour abnormalities. HEART AND VASCULAR STRUCTURES: Cardiomegaly status post median sternotomy. BONES: No acute findings. HARDWARE: None in the chest. OTHER: No other significant finding. IMPRESSION: No acute abnormality of the lungs. Cardiomegaly status post median sternotomy. TECHNICAL DOCUMENTATION: JOB ID: [id number] [employer]- All Rights Reserved Reading location - IP/workstation name: [facility]
[2018-05-28 13:36] LABS: ALANINE AMINOTRANSFERASE 37 U/L (9-52); ALBUMIN 3.6 g/dL (3.5-5.0); ALKALINE PHOSPHATASE 181 U/L (38-126); ANION GAP 6 (5-19); ASPARTATE AMINO TRANSFERASE 16 U/L (14-36); BILIRUBIN,DIRECT 0.1 mg/dL (0.0-0.4); BILIRUBIN,TOTAL 0.9 mg/dL (0.2-1.3); BLOOD UREA NITROGEN 23 mg/dL (7-20); CALCIUM 9.4 mg/dL (8.4-10.2); CARBON DIOXIDE 32 mmol/L (22-30); CHLORIDE 100 mmol/L (98-107); CREATINE KINASE 46 U/L (30-135); GLUCOSE 322 mg/dL (75-110); POTASSIUM 4.4 mmol/L (3.6-5.0); SODIUM 138.1 mmol/L (137-145); TOTAL PROTEIN 7.3 g/dL (6.3-8.2)
[2018-05-28 13:47] LABS: CREATINE KINASE MB 0.53 ng/mL (<4.55)
[2018-05-28 13:48] LABS: TROPONIN I < 0.012 ng/mL
[2018-05-28 15:17] VITALS: BP 158/74
--- NOTE | 2018-05-28 15:17 | ER Document Report ---
ED General - General Chief Complaint: Chest Pain Stated Complaint: CHEST PAIN, BODY PAIN Time Seen by Provider: 05/28/18 12:48 Primary Care Provider: LORAINE SÁNCHEZ MD [Primary Care Provider] - Follow up as needed Mode of Arrival: Ambulatory Information source: Patient TRAVEL OUTSIDE OF THE [place] IN LAST 30 DAYS: No - HPI Patient complains to provider of: Cough, chest pain Onset: Yesterday Onset/Duration: Gradual Quality of pain: Achy Severity: Moderate Pain Level: 3 Associated symptoms: Body/muscle aches, Chest pain, Productive cough Exacerbated by: Coughing Relieved by: Denies Notes: Patient is a 62-year-old female presenting to the emergency room today complaining of chest pain that occurs when she coughs, she has been coughing since yesterday and experiencing the pain, cough is productive of a small amount of whitish colored phlegm at times, she denies a fever, denies shortness of breath, she also had some vomiting on Thursday which is resolved, she was able to eat today without difficulty, denies any abdominal pain, no sick contacts, no recent long distance traveling or periods of immobilization, no injuries and no recent surgeries - Related Data Allergies/Adverse Reactions: oxycodone Allergy (Verified 05/28/18 11:51) Past Medical History - General Information source: Patient - Social History Smoking Status: Never Smoker Chew tobacco use (# tins/day): No Frequency of alcohol use: None Drug Abuse: None Family History: Reviewed & Not Pertinent Patient has suicidal ideation: No Patient has homicidal ideation: No - Past Medical History Cardiac Medical History: Reports: Hx Hypercholesterolemia, Hx Hypertension Endocrine Medical History: Reports: Hx Diabetes Mellitus Type 2 Renal/ Medical History: Denies: Hx Peritoneal Dialysis Past Surgical History: Reports: Hx Hysterectomy, Hx Open Heart Surgery - cabgx1 Review of Systems - Review of Systems Constitutional: No symptoms reported EENT: No symptoms reported Cardiovascular: See HPI Respiratory: See HPI Gastrointestinal: No symptoms reported Genitourinary: No symptoms reported Female Genitourinary: No symptoms reported Musculoskeletal: No symptoms reported Skin: No symptoms reported Hematologic/Lymphatic: No symptoms reported Neurological/Psychological: No symptoms reported -: Yes All other systems reviewed and negative Physical Exam - Vital signs Vitals: Temp Pulse Resp BP Pulse Ox 98.5 F 95 16 195/103 H 96 05/28/18 12:03 05/28/18 12:03 05/28/18 12:03 05/28/18 12:03 05/28/18 12:03 Interpretation: Hypertensive - General General appearance: Appears well, Alert - HEENT Head: Normocephalic, Atraumatic Eyes: Normal Pupils: PERRL - Respiratory Respiratory status: No respiratory distress Chest status: Tender - Slight tenderness to palpate over the midsternum Breath sounds: Normal Chest palpation: Normal - Cardiovascular Rhythm: Regular Heart sounds: Normal auscultation Murmur: No - Abdominal Inspection: Obese Distension: No distension Bowel sounds: Normal Tenderness: Nontender Organomegaly: No organomegaly - Back Back: Normal, Nontender - Extremities General upper extremity: Normal inspection, Nontender, Normal color, Normal ROM, Normal temperature General lower extremity: Normal inspection, Nontender, Normal color, Normal ROM, Normal temperature, Normal weight bearing. No: Ajay's sign - Neurological Neuro grossly intact: Yes Cognition: Normal Orientation: AAOx4 Tu Coma Scale Eye Opening: Spontaneous [place] Coma Scale Verbal: Oriented Tu Coma Scale Motor: Obeys Commands Tu Coma Scale Total: 15 Speech: Normal Motor strength normal: LUE, RUE, LLE, RLE Sensory: Normal - Psychological Associated symptoms: Normal affect, Normal mood - Skin Skin Temperature: Warm Skin Moisture: Dry Skin Color: Normal Course - Re-evaluation Re-evalutation: 05/28/18 15:20 Lab and imaging findings unremarkable and discussed with patient at bedside, chest x-ray unremarkable as well, symptoms consistent with musculoskeletal chest pain from a productive cough, patient is afebrile, has no white count and no evidence of pneumonia on chest x-ray, therefore she was provided with cough suppressant medication and instructions for follow-up, advised to return if symptoms worsen, patient acknowledges understanding and agreement with this plan - Vital Signs Vital signs: Temp Pulse Resp BP Pulse Ox 98.5 F 95 17 158/74 H 95 05/28/18 12:03 05/28/18 12:03 05/28/18 15:01 05/28/18 15:01 05/28/18 15:01 - Laboratory Result Diagrams: 05/28/18 13:03 05/28/18 13:03 Laboratory results interpreted by me: 05/28/18 05/28/18 05/28/18 13:03 13:03 13:03 WBC 11.7 H Carbon Dioxide 32 H BUN 23 H Glucose 322 H Alkaline Phosphatase 181 H Urine Glucose (UA) >=500 H Urine Urobilinogen 2.0 H - Diagnostic Test Radiology reviewed: Image reviewed, Reports reviewed - EKG Interpretation by Me EKG shows normal: Sinus rhythm Rate: Normal Rhythm: NSR Voltage: Consistant with LVH Discharge - Discharge Clinical Impression: Chest wall pain Condition: Stable Disposition: HOME, SELF-CARE Instructions: Chest Wall Pain ([facility]) Additional Instructions: Follow up with your primary care provider in one to 2 days. Return to the emergency room immediately if symptoms worsen or any additional concerns. Prescriptions: Benzonatate [Tessalon Perle 100 mg Capsule] 100 mg PO Q8HP PRN #30 cap PRN Reason: Referrals: LORAINE SÁNCHEZ MD [Primary Care Provider] - Follow up as needed
--- NOTE | 2018-05-28 23:02 | EKG REPORT ---
SEVERITY:- ABNORMAL ECG - SINUS RHYTHM LVH WITH SECONDARY REPOLARIZATION ABNORMALITY : Confirmed by: Iam Morgan 28-May-2018 23:01:32
== END 2018-05-28 15:24 | disposition home or self-care (01) ==
LOC: ER 11:47
DX: R07.89 Other chest pain (principal); R05 Cough; I10 Essential (primary) hypertension; E11.9 Type 2 diabetes mellitus without complications; Z95.1 Presence of aortocoronary bypass graft; Z88.5 Allergy status to narcotic agent
CPT/HCPCS: 36415; 71046; 80053; 81001; 82550; 82553; 84484; 85025; 93005; 93010; 99284